=== PATIENT | female | born 1965 | race Caucasian/White ===

== ENCOUNTER 2025-07-27 12:52 | Emergency (ER) | payer OTHER ==
[~2025-07-27] VITALS: Ht 162.6 cm; Wt 72.6 kg
[2025-07-27 13:00] VITALS: TEMP 98.6
[2025-07-27 13:39] LABS: BASOPHILS % 0.5 % (0.0-1.0); EOSINOPHILS % 1.7 % (0.0-6.0); LYMPHOCYTES % 19.1 % (18.0-39.1); MONOCYTES % 8.2 % (4.4-11.3); NEUTROPHILS % 70.0 % (38.7-80.0); RED CELL DISTRIBUTION WIDTH 12.0 % (11.7-14.4)
[2025-07-27 13:52] LABS: INR 0.94
[2025-07-27 14:01] LABS: EST GLOMERULAR FILTRATION RATE 69.0 ML/MIN (>=60)
[2025-07-27] MEDS: ONDANSETRON HCL INJ 2MG/ML 2ML 2 MG/ML VIAL IV STA (14:20)
[2025-07-27] MEDS: SODIUM CHLORIDE 0.9% 1000ML 1,000 ML IV ONE ×2 (14:20→17:53)
[2025-07-27] MEDS: Morphine 4mg INJECTION 4 MG/ML INJ IV ONE (14:20)
[2025-07-27] MEDS ORDERED: IOPAMIDOL 370 MG/ML 100 ML INFUS..BTL INJ ONE (14:42)
[2025-07-27] MEDS ORDERED: SODIUM CHLORIDE 0.9% 100 ML ONE (14:42)
[2025-07-27 14:55] VITALS: PULSE 90; RESP 22
[2025-07-27] MEDS: KETOROLAC TROMETHAMINE 30 MG/ML VIAL IV STA (17:53)
[2025-07-27] MEDS: METHOCARBAMOL 750 MG TAB PO ONE (17:53)
[2025-07-27] MEDS ORDERED: METHOCARBAMOL500 MG PO (18:02)
[2025-07-27 18:29] VITALS: BP 146/79; PULSE 88; RESP 23; TEMP 98.6; O2SAT 100
== END 2025-07-27 18:32 | disposition home or self-care (01) ==
LOC: ER 13:06
DX: M25.552 Pain in left hip (principal); M79.652 Pain in left thigh; R23.8 Other skin changes; W50.0XXA Accidental hit or strike by another person, initial encounter; Y92.89 Other specified places as the place of occurrence of the external cause
CPT/HCPCS: 36415; 75635; 80053; 85025; 85610; 85730; 93005; 93926; 93971; 99284; J1885; J2270; J2405; J7030; J7050; Q9967